=== PATIENT | male | born 1985 | race Caucasian/White ===

== ENCOUNTER 2023-08-14 15:51 | Emergency (ER) | payer SELFPAY | END 2023-08-14 17:43 | disposition home or self-care (01) | LOC: JP.ED 15:51 | DX: S43.102A Unspecified dislocation of left acromioclavicular joint, initial encounter (principal); Z88.5 Allergy status to narcotic agent; W10.8XXA Fall (on) (from) other stairs and steps, initial encounter; Y99.0 Civilian activity done for income or pay | CPT/HCPCS: 73030-26-LT; 73030-LT; 99283 ==

== ENCOUNTER 2023-09-21 05:43 | Day surgery (SDC) | payer MEDICAID ==
[2023-09-21] MEDS ORDERED: Lactated Ringers 1,000 ML IV SCH (06:30)
[2023-09-21] MEDS ORDERED: Nozin Nasal Sanitizer NASBOTH ONE (06:30)
[2023-09-21 06:33] LABS: HEMATOCRIT 42.2 % (38.4-49.7); HEMOGLOBIN 13.8 g/dL (12.9-16.9); MEAN CORPUSCULAR HEMOGLOBIN 29.4 pg (31.6-35.5); MEAN CORPUSCULAR HGB CONC 32.7 g/dL (31.6-35.5); MEAN CORPUSCULAR VOLUME 89.8 fL (81.4-99.0); RED BLOOD CELL COUNT 4.7 M/uL (4.14-5.76); WHITE BLOOD CELL COUNT,WBC 7.1 K/uL (3.2-11.0)
[2023-09-21 06:52] LABS: CALCIUM 8.1 mg/dL (8.5-10.1); CREATININE 0.8 mg/dL (0.8-1.3); EST CRCL DRUG DOSING (CG) 130.73 mL/min; POTASSIUM,K 3.7 mmol/L (3.6-5.2)
[2023-09-21 06:55] LABS: ANION GAP 11.7 mmol/L (5.0-14.0)
[2023-09-21] MEDS ORDERED: Bupivacaine 0.5% 50 ML MDV ONE (07:16)
[2023-09-21] MEDS ORDERED: Bupivacaine 0.5% 30 ML SDV ONE (07:16)
[2023-09-21] MEDS ORDERED: fentaNYL 100 MCG/2 ML SDV ONE ×3 (07:18→08:39)
[2023-09-21] MEDS ORDERED: Propofol 200 MG/20 ML SDV ONE ×3 (07:18→09:30)
[2023-09-21] MEDS ORDERED: Midazolam 1 MG/ML 2 ML SDV ONE ×2 (07:18→09:48)
[2023-09-21] MEDS ORDERED: Acetaminophen/oxyCODONE 325-5 MG Tab PO PRN (10:54)
== END 2023-09-21 11:48 | disposition home or self-care (01) ==
LOC: JP.SDS 05:43
PROVIDERS: ATTEND Specialist
DX: M75.102 Unspecified rotator cuff tear or rupture of left shoulder, not specified as traumatic (principal); S43.432A Superior glenoid labrum lesion of left shoulder, initial encounter; M75.122 Complete rotator cuff tear or rupture of left shoulder, not specified as traumatic; M75.111 Incomplete rotator cuff tear or rupture of right shoulder, not specified as traumatic; X58.XXXA Exposure to other specified factors, initial encounter
CPT/HCPCS: 36415; 80048; 85027; A9270-GY; C1713; J0665; J0690; J2250; J2704; J3010; J3490; J7120